=== PATIENT | male | born 1970 | race Native Hawaiian/Other Pacific Islander ===

== ENCOUNTER 2019-09-29 16:18 | Emergency (ER) | payer OTHER ==
[~2019-09-29] VITALS: Ht 188 cm; Wt 108.9 kg
[2019-09-29 16:18] VITALS: TEMP 98.4
[2019-09-29 17:13] LABS: PLATELET COUNT 151 K/uL (142-355)
[2019-09-29 19:20] VITALS: BP 124/69
== END 2019-09-29 19:22 ==
LOC: ED 16:18
PROVIDERS: Emergency Medicine
DX: F10.950 Alcohol use, unspecified with alcohol-induced psychotic disorder with delusions (principal)
CPT/HCPCS: 36415; 80053; 80307; 80329; 81000; 82140; 85027; 93005; 99284